=== PATIENT | female | born 1965 | race Caucasian/White ===

== ENCOUNTER 2020-09-06 06:23 | Day surgery (SDC) | payer MEDICARE ==
[~2020-09-06] VITALS: Ht 162.6 cm; Wt 104.5 kg
[2020-09-06 07:04] LABS: HEMATOCRIT 39.8 % (36.0-48.0); HEMOGLOBIN 13.1 g/dL (12-16); MCH 29.2 pg (26.0-34.0); MCHC 32.9 g/dL (31.0-37.0); MCV 88.6 fL (80.0-100.0); MEAN PLATELET VOLUME 10.5 fL (7.4-10.4); RBC 4.49 10x6/uL (4.00-5.40); RDW 13.5 % (11.5-14.5); WBC 6.7 10x3/uL (4.8-10.8)
[2020-09-06 07:19] LABS: CALC OSMOLALITY 283 mosm/kg (275-300); CALCIUM 9.3 mg/dL (8.5-10.1); CARBON DIOXIDE 28.6 mmol/L (21.0-32.0); CHLORIDE - SERUM 103 mmol/L (98-107); CREATININE - SERUM 0.6 mg/dL (0.6-1.3); POTASSIUM - SERUM 3.4 mmol/L (3.5-5.1); SODIUM 143 mmol/L (136-145); UREA NITROGEN 14 mg/dL (7-18); eGFR NON AFRICAN AMERICAN > 90 mL/min (90-120)
[2020-09-06 07:23] LABS: GLUCOSE 66 mg/dL (74-106)
[2020-09-06] MEDS ORDERED: HYDROXYCHLOROQ200 MG PO (08:07)
[2020-09-06] MEDS ORDERED: COLCRYS0.6 MG PO (08:08)
[2020-09-06] MEDS ORDERED: AZULFIDINE500 MG PO (08:09)
[2020-09-06] MEDS ORDERED: VOLTAREN100 GM (08:09)
[2020-09-06] MEDS ORDERED: NORVASC5 MG PO (08:12)
--- NOTE | 2020-09-06 08:13 | NUR ---
0800 PT HAS A POSITIVE LIFETIME SUICIDE HISTORY. PT DECLINES TO SEE A BEHAVIORAL HEALTH NURSE FOR FURTHER EVALUATION. PT STATES THAT HER SUICIDE ATTEMPT WAS YEARS AGO WHEN HER CHILDREN WERE YOUNG.
[2020-09-06 08:25] VITALS: BP 181/74; Ht 162.6 cm; Wt 104.5 kg
[2020-09-06] MEDS ORDERED: LIPITOR10 MG PO (08:33)
[2020-09-06] MEDS ORDERED: CYMBALTA30 MG PO (08:33)
[2020-09-06] MEDS ORDERED: DIFLUCAN150 MG (08:34)
[2020-09-06] MEDS ORDERED: GABAPENTIN300 MG PO (08:34)
[2020-09-06] MEDS ORDERED: HUMALOG 30100 UNITS/ (08:35)
[2020-09-06] MEDS ORDERED: VISTARIL50 MG PO (08:37)
[2020-09-06] MEDS ORDERED: BETAGAN 0.5% OPH5 ML EACH EYE (08:38)
[2020-09-06] MEDS ORDERED: XALATAN 0.0052.5 ML EACH EYE (08:38)
[2020-09-06] MEDS ORDERED: GLUCOPHAGE1000 MG (08:39)
[2020-09-06] MEDS ORDERED: CLARITIN 10 MG10 MG (08:39)
[2020-09-06] MEDS ORDERED: K-DUR20 MEQ PO (08:40)
[2020-09-06] MEDS ORDERED: PROTONIX40 MG PO (08:40)
[2020-09-06] MEDS ORDERED: ZANAFLEX4 MG PO (08:41)
[2020-09-06] MEDS ORDERED: TOUJEO SOL300 UNIT/1 (08:42)
[2020-09-06] MEDS ORDERED: TRULICITY1.5 MG/0.5 SC (08:42)
[2020-09-06] MEDS ORDERED: DIOVAN80 MG PO (08:43)
--- NOTE | 2020-09-06 09:02 | NUR ---
0845 BS IS 66 ON AM LAB. ALISIA IRAHETA CRNA NOTIFIED. ORDERS RECEIVED FOR D50W IF RECHECK BS IS <75
--- NOTE | 2020-09-06 10:37 | NUR ---
DISCHARGE INSTRUCTIONS REVIEWED WITH PATIENT AND FRIEND JORGE LUIS. COPY OF DC INSTRUCTIONS, HIGH FIBER DIET AND LIST OF NSAIDS TO AVOID PROVIDED TO PT. BOTH VOICED UNDERSTANDING. IV DC'D WITH CATH TIP INTACT. PT UP GETTING DRESSED FOR DISCHARGE.
--- NOTE | 2020-09-06 10:50 | NUR ---
DISCHARGED VIA W/C, ACCOMPANIED BY THIS NURSE, TO POV WITH FRIEND DRIVING. ALL BELONGINGS WITH PT.
--- NOTE | 2020-09-07 14:44 | OP ---
PATIENT NAME: JUAREZ ACOSTA MEDICAL RECORD: [id number] :65 LOCATION:[facility] ADMISSION DATE: SURGEON: BLELE CAMERON MD DATE OF OPERATION: 09/06/2020 PROCEDURE: Colonoscopy PREOPERATIVE DIAGNOSES: This is a patient here for a change in bowel habits and a workup for anemia. DESCRIPTION OF PROCEDURE: The patient was placed in the left lateral position and made comfortable. The colonoscope was inserted through the rectum and advanced to the cecum, identified by the ileocecal valve and appendiceal orifice. The quality of the prep was good. There were few sigmoid diverticula in the sigmoid colon. There was a 5-mm ascending colon polyp. This was removed with hot biopsy forceps. There was a small sigmoid polyp. This was removed with cold biopsy forceps. There were nonbleeding internal hemorrhoids on retroflexion. The patient tolerated the procedure well. There were no immediate complications. FINAL DIAGNOSES: Nonbleeding internal hemorrhoids, few sigmoid diverticula, two colon polyps removed and sent for histology. PLAN: Advance diet. Repeat colonoscopy based on pathology. TRANSINT:[id number] Voice Confirmation ID: [id number] DOCUMENT ID: [id number] BELLE CAMERON MD at 1444 CC: [id number] DICTATION DATE: 09/06/20 1004 IT APPLICATION DEVELOPMENT MANAGER: 09/06/20 1630 [facility] 09/06/20 [facility] [address] [place] [address]
== END 2020-09-06 10:50 | disposition home or self-care (01) ==
LOC: D.OPS 06:23
PROVIDERS: Anesthesiology; ATTEND Internal Medicine Gastroenterology
DX: R19.4 Change in bowel habit (principal); D64.9 Anemia, unspecified; K63.5 Polyp of colon; K64.8 Other hemorrhoids; K57.30 Diverticulosis of large intestine without perforation or abscess without bleeding; K21.9 Gastro-esophageal reflux disease without esophagitis

== ENCOUNTER 2020-09-08 06:01 | Day surgery (SDC) | payer MEDICARE, MEDICAID ==
[~2020-09-08] VITALS: Ht 162.6 cm; Wt 104.5 kg
[~2020-09-08 06:01] MED LIST: AZULFIDINE500 MG PO; BETAGAN 0.5% OPH5 ML EACH EYE; CLARITIN 10 MG10 MG; COLCRYS0.6 MG PO; CYMBALTA30 MG PO; DIFLUCAN150 MG; DIOVAN80 MG PO; GABAPENTIN300 MG PO; GLUCOPHAGE1000 MG; HUMALOG 30100 UNITS/; HYDROXYCHLOROQ200 MG PO; K-DUR20 MEQ PO; LIPITOR10 MG PO; NORVASC5 MG PO; PROTONIX40 MG PO; TOUJEO SOL300 UNIT/1; TRULICITY1.5 MG/0.5 SC; VISTARIL50 MG PO; VOLTAREN100 GM; XALATAN 0.0052.5 ML EACH EYE; ZANAFLEX4 MG PO
[2020-09-08 06:34] LABS: BASOPHILS 0.2 % (0-2); EOSINOPHILS 4.3 % (0-7); HEMATOCRIT 38.7 % (36.0-48.0); HEMOGLOBIN 12.5 g/dL (12-16); IMMATURE GRANULOCYTES 0.3 % (0-5); LYMPHOCYTE ABS# 2.63 10x3/uL (1.18-3.74); LYMPHOCYTES 40.5 % (15-50); MCH 28.9 pg (26.0-34.0); MCHC 32.3 g/dL (31.0-37.0); MCV 89.6 fL (80.0-100.0); MEAN PLATELET VOLUME 10.9 fL (7.4-10.4); MONOCYTES 7.6 % (2-11); NEUTROPHIL ABS# 3.06 10x3/uL (1.56-6.13); NEUTROPHILS 47.1 % (40-80); PLATELET COUNT 194 10x3/uL (130-400); RBC 4.32 10x6/uL (4.00-5.40); RDW 13.3 % (11.5-14.5); WBC 6.5 10x3/uL (4.8-10.8)
[2020-09-08 06:37] LABS: ALBUMIN 3.8 g/dL (3.4-5.0); ALKALINE PHOSPHATASE 104 U/L (30-120); ALT (SGPT) 34 U/L (10-68); BILIRUBIN - TOTAL 0.57 mg/dL (0.2-1.3); CALC OSMOLALITY 280 mosm/kg (275-300); CALCIUM 9.1 mg/dL (8.5-10.1); CARBON DIOXIDE 30.4 mmol/L (21.0-32.0); CHLORIDE - SERUM 105 mmol/L (98-107); CREATININE - SERUM 0.6 mg/dL (0.6-1.3); POTASSIUM - SERUM 3.7 mmol/L (3.5-5.1); PROTEIN - SERUM 7.3 g/dL (6.4-8.2); SODIUM 142 mmol/L (136-145); UREA NITROGEN 13 mg/dL (7-18); eGFR NON AFRICAN AMERICAN > 90 mL/min (90-120)
[2020-09-08 06:38] LABS: GLUCOSE 67 mg/dL (74-106)
[2020-09-08 06:41] VITALS: BP 163/70; Ht 162.6 cm; Wt 104.5 kg
--- NOTE | 2020-09-08 09:32 | NUR ---
DC INSTRUCTIONS GIVEN TO PT. STATES UNDERSTANDING. DC'D IV CATH FULLY INTACT. PT LEFT UNIT VIA AT 3083
--- NOTE | 2020-09-08 14:46 | OP ---
PATIENT NAME: JUAREZ ACOSTA MEDICAL RECORD: [id number] :65 LOCATION:[facility] ADMISSION DATE: SURGEON: BELLE CAMERON MD DATE OF OPERATION: 09/08/2020 PROCEDURE: Upper endoscopy. PREOPERATIVE DIAGNOSES: Anemia, gastroesophageal reflux disease. MEDICATIONS: Propofol per anesthesia. DESCRIPTION OF PROCEDURE: The patient was made comfortable in the left lateral position. The endoscope was advanced through the mouth and advanced to the second part of the duodenum. The entire examined esophagus was normal. In the gastric body was a large ulcerated gastric polyp. The polyp appeared highly vascular and due to its size, ulcerations, and vascularity, polypectomy was not attempted. However, I did take a very small biopsy at the stalk of this polyp and due to the vascular nature, this area bled minimally and one endoclip was placed. There was no bleeding after this procedure. Mild erythema consistent with gastritis. Random gastric biopsies were taken. The duodenum was normal. The patient tolerated the procedure well. There were no immediate complications. FINAL DIAGNOSIS: A 1.5 cm ulcerated gastric polyp. This appeared highly vascular with a vascular appearing stalk that even with a diminutive small biopsy did bleed and therefore one endoclip was placed. PLAN: Check histology results. I will refer this patient to [facility] for endoscopic ultrasound and polypectomy. Follow up in GI office. We will overbook this patient and communication to the GI office has been noted. TRANSINT:[id number] Voice Confirmation ID: [id number] DOCUMENT ID: [id number] BELLE CAMERON MD at 1446 CC: [id number] DICTATION DATE: 09/08/20 0839 HYDRAULIC RIVETER: 09/08/20 1054 [facility] 09/08/20 [facility] [address] [place] [id number]
== END 2020-09-08 09:29 | disposition home or self-care (01) ==
LOC: D.OPS 06:01
PROVIDERS: ATTEND Internal Medicine Gastroenterology
DX: D64.9 Anemia, unspecified (principal); K21.9 Gastro-esophageal reflux disease without esophagitis; K31.7 Polyp of stomach and duodenum; R19.4 Change in bowel habit

== ENCOUNTER 2020-09-26 10:30 | Day surgery (SDC) | payer MEDICARE, MEDICAID ==
[~2020-09-26] VITALS: Ht 162.6 cm; Wt 108.2 kg
--- NOTE | ~2020-09-26 | OP ---
PATIENT NAME: JUAREZ ACOSTA MEDICAL RECORD: [id number] :65 LOCATION:[facility] ADMISSION DATE: SURGEON: MICHEL FUNEZ MD DATE OF OPERATION: 09/26/2020 PREOPERATIVE DIAGNOSIS: Large gastric polyp, vascular. POSTOPERATIVE DIAGNOSES: 1. Large gastric polyp, vascular. 2. Bezoar. PROCEDURE: 1. Esophagogastroduodenoscopy without biopsies. 2. Gastric snare polypectomy with the argon plasma digital producer. SURGEON: Michel Funez MD OPEN HEARTH DOOR LINER: None. BLOOD LOSS: Minimal. ANESTHESIA: IV sedation. COMPLICATIONS: None. DESCRIPTION OF PROCEDURE: The patient was conveyed to the endoscopy suite electively on 09/26/2020. IV sedation was induced by the anesthesia staff. A bite block was inserted. A gastroscope was inserted into the mouth. It was advanced easily into the hypopharynx. The esophagus was easily intubated as were the stomach and duodenum. In the duodenal bulb, there was some residual food material. In the gastric fundus, there was a large amount of residual food material consistent with a bezoar. I was able to easily identify the polyp, which appeared adenomatous. I advanced a sclerotherapy needle. At the base of the polyp, I injected epinephrine for post-procedural hemostasis. I then withdrew the sclerotherapy needle. I advanced an endoscopic snare. Utilizing coagulation setting, I performed a snare polypectomy at the base of the polyp. The snare was removed. I then advanced the argon plasma digital producer. Utilizing the gastric setting in the forced mode, I then cauterized the polypectomy site. There was some bleeding and this was controlled with the argon plasma digital producer. I then advanced an endoscopic retrieval net and I was able to retrieve the polyp in its entirety. The patient was conveyed back to her room. I will see her in the office in 2 to 3 weeks. At that time, I likely will return endoscopic care back over to Dr. Shah. TRANSINT:[id number] Voice Confirmation ID: [id number] DOCUMENT ID: [id number] cc: Lizz Carrasco, unknown OPERATIVE REPORT [id number] JUAREZ ACOSTA MICHEL FUNEZ MD CC: BELLE SHAH MD and NUNU SPENCER MD [id number] DICTATION DATE: 09/26/20 1213 RETAIL MARKETING SPECIALIST: 09/26/20 1622 [facility] 09/26/20 [facility] [address] [place] [address]
[2020-09-26 10:56] LABS: BASOPHILS 0.5 % (0-2); EOSINOPHILS 6.4 % (0-7); HEMATOCRIT 40.3 % (36.0-48.0); HEMOGLOBIN 13.2 g/dL (12-16); IMMATURE GRANULOCYTES 0.3 % (0-5); LYMPHOCYTE ABS# 2.21 10x3/uL (1.18-3.74); LYMPHOCYTES 36.4 % (15-50); MCH 29.1 pg (26.0-34.0); MCHC 32.8 g/dL (31.0-37.0); MEAN PLATELET VOLUME 10.9 fL (7.4-10.4); MONOCYTES 8.4 % (2-11); NEUTROPHIL ABS# 2.91 10x3/uL (1.56-6.13); PLATELET COUNT 198 10x3/uL (130-400); RBC 4.53 10x6/uL (4.00-5.40); WBC 6.1 10x3/uL (4.8-10.8)
[2020-09-26 11:12] VITALS: Ht 162.6 cm; Wt 108.2 kg
[2020-09-26 11:15] LABS: ALBUMIN 3.7 g/dL (3.4-5.0); ALKALINE PHOSPHATASE 134 U/L (30-120); ALT (SGPT) 54 U/L (10-68); BILIRUBIN - TOTAL 0.27 mg/dL (0.2-1.3); CALC OSMOLALITY 278 mosm/kg (275-300); CALCIUM 9.4 mg/dL (8.5-10.1); CARBON DIOXIDE 32.7 mmol/L (21.0-32.0); CHLORIDE - SERUM 103 mmol/L (98-107); CREATININE - SERUM 0.6 mg/dL (0.6-1.3); POTASSIUM - SERUM 3.7 mmol/L (3.5-5.1); PROTEIN - SERUM 7.4 g/dL (6.4-8.2); SODIUM 139 mmol/L (136-145); UREA NITROGEN 13 mg/dL (7-18); eGFR NON AFRICAN AMERICAN > 90 mL/min (90-120)
[2020-09-26 11:16] LABS: GLUCOSE 110 mg/dL (74-106)
--- NOTE | 2020-09-26 13:17 | NUR ---
1305 IV DC'ED WITH CATH INTACT. LAMBERTO. Ann PRETTY R.N.
--- NOTE | 2020-09-26 13:32 | NUR ---
1325 DRESSED, AWAKE & ALERT. SITTING UP IN CHAIR @ BEDSIDE. GIVEN DISCHARGE INFORMATION INCLUDING MED REC, RTC APPT., SHEET LISTING NSAIDS TO AVOID FOR 10 DAYS, & [facility] POST ENDOSCOPY D/C INSTRUCTIONS. PT VOICED UNDERSTANDING. TO PRIVATE CAR PER WHEELCHAIR BY STAFF. HOME WITH FRIEND, JORGE LUIS. Ann PRETTY R.N.
== END 2020-09-26 13:35 | disposition home or self-care (01) ==
LOC: D.OPS 10:30
PROVIDERS: Anesthesiology; ATTEND Surgery
DX: K31.7 Polyp of stomach and duodenum (principal)